=== PATIENT | male | born 1965 | race Caucasian/White ===

== ENCOUNTER 2019-04-21 10:22 | Day surgery (SDC) | payer OTHER ==
[2019-04-12 19:37] VITALS: BMI 25.5
[2019-04-21] MEDS ORDERED: ROPIVACAINE HCL 0.5% 30ML VIAL ONE (11:03)
[2019-04-21] MEDS ORDERED: MIDAZOLAM HCL 2 MG/2 ML SINGLE DOSE VIAL ONE ×4 (11:03→13:12)
[2019-04-21] MEDS ORDERED: oxyCODONE HCL 5 MG TABLET PO PRN (11:56)
[2019-04-21] MEDS ORDERED: ONDANSETRON 4 MG/2 ML VIAL IVPUSH PRN (11:56)
[2019-04-21] MEDS ORDERED: LACTATED RINGERS SOLUTION 1,000 ML IV SCH (12:00)
[2019-04-21] MEDS ORDERED: DEXAMETHASONE SOD PHOSPHATE 4 MG/1 ML VIAL ONE (12:17)
[2019-04-21] MEDS ORDERED: ceFAZolin SODIUM 1 GM VIAL ONE (12:17)
[2019-04-21] MEDS ORDERED: PROPOFOL 20 ML ONE ×2 (13:26→13:29)
[2019-04-21] MEDS ORDERED: KETOROLAC TROMETHAMINE 30 MG/1 ML VIAL ONE (14:00)
[2019-04-21 14:17] VITALS: TEMP 97.4
[2019-04-21] MEDS ORDERED: oxyCODONE HCL 5 MG TABLET ONE (14:48)
[2019-04-21] MEDS ORDERED: oxyCODONE HCL 5 MG TABLET PO ONE (14:50)
[2019-04-21 15:48] VITALS: BP 116/66; PULSE 62
--- NOTE | 2019-04-22 09:34 | OP ---
DATE OF OPERATION: 04/21/2019 PREOPERATIVE DIAGNOSES: 1. Right shoulder acromioclavicular joint osteoarthritis. 2. Right shoulder proximal biceps tendinosis and partial tear. 3. Right shoulder osteoarthritis 4. Right shoulder subacromial impingement syndrome with rotator cuff tendinosis. POSTOPERATIVE DIAGNOSES: 1. Right shoulder acromioclavicular joint osteoarthritis. 2. Right shoulder proximal biceps tendinosis and partial tear. 3. Right shoulder osteoarthritis 4. Right shoulder subacromial impingement syndrome with rotator cuff tendinosis. OPERATIVE PROCEDURE: 1. Right shoulder operative arthroscopy with distal clavicle resection. 2. Right shoulder proximal biceps tenotomy. 3. Right shoulder arthroscopic subacromial decompression with anterior-inferior acromioplasty. 4. Right shoulder extensive debridement of glenohumeral joint and rotator cuff. SURGEON: Alex Schreiber MD BACK SEWER: KARTHIK Brandon ANESTHESIA: Regional. COMPLICATIONS: None. ESTIMATED BLOOD LOSS: Minimal. INDICATION FOR PROCEDURE: The patient is a 54-year-old male with the above findings indicated for operative treatment. He had failed conservative measures. Risks, benefits, alternatives were discussed with him at length and proper informed consent was obtained. PROCEDURE: After proper identification of patient and correct operative site patient brought to the operating room and placed into the beach-chair position where regional anesthesia had been provided. Sedation was also given and this was adequate for procedure. All points of contact were well padded and in-line cervical positioning was maintained throughout the procedure. Right upper extremity was prepped and draped in the usual sterile fashion. Arthroscopy was performed through posterior, lateral and anterior portals. Incisions were made sharply through the skin and with blunt dissection down to the joint capsule on each portal. Glenohumeral joint was first observed and there was found to be severe full-thickness chondral loss of nearly the entire posterior 2/3 of the humeral head as well as moderate chondromalacia of the entire glenoid. Diffuse labral fraying was noted including significant fraying of the biceps tendon at its insertion into the superior labrum. This continued into the length of the biceps exiting the shoulder into the transverse humeral ligament groove. Moderate synovitis was noted throughout the shoulder and a lot of fraying of the labrum and loose cartilage was noted. Extensive debridement was performed in this compartment of the synovitis, any loose strands of the chondromalacia and the labrum. A proximal biceps tenotomy was then performed by resecting the biceps at its root just above the labrum and allowing it to fall into the arm. There was mild fraying of the articular surface of the rotator cuff anteriorly and this was debrided, but there was no evidence of any significant tear. Arthroscope was then introduced into the subacromial space where a severe bursitis was noted and this was debrided with mechanical shaver and Arthro wand. A very large anterior-inferior subacromial spur was noted and anterior-inferior acromioplasty was performed. The acromioclavicular joint was found to be severely hypertrophic and the medial edge of the acromion was shaved down so we could see the joint and there was severe arthrosis here. Using an arthroscopic bur the distal 8 mm of the distal clavicle was completely resected while leaving the capsule intact. Shoulder was taken through a range of motion and there was no contact between the acromion and the clavicle at this point. The rotator cuff had diffuse tendinosis on the bursal surface for the supraspinatus and infraspinatus and this was debrided. No significant tears were noted, however. The shoulder was then irrigated. Full range of motion was achieved with no impingement arthroscopically noted. Wounds were repaired with nylon sutures and sterile dressings and a splint were placed. Patient was reversed from anesthesia and brought to recovery room in stable condition. Wallace Ruffin, the library technical assistant, was integral throughout the procedure. The procedure could not have been performed without a skilled operative library technical assistant. Radha [id number]
== END 2019-04-21 16:00 | disposition home or self-care (01) ==
LOC: FASU 10:22
PROVIDERS: ATTEND Orthopaedic Surgery Hand Surgery
PROC: 0RBJ4ZZ Excision of Right Shoulder Joint, Percutaneous Endoscopic Approach (ICD-10-PCS; 2019-04-21)
PROC: 0RNJ4ZZ Release Right Shoulder Joint, Percutaneous Endoscopic Approach (ICD-10-PCS; 2019-04-21)
PROC: 0PB94ZZ Excision of Right Clavicle, Percutaneous Endoscopic Approach (ICD-10-PCS; principal; 2019-04-21 12:32)
PROC: 0RNJ4ZZ Release Right Shoulder Joint, Percutaneous Endoscopic Approach (ICD-10-PCS; 2019-04-21 12:32)
DX: M75.51 Bursitis of right shoulder (principal); M19.011 Primary osteoarthritis, right shoulder; M75.21 Bicipital tendinitis, right shoulder; M75.41 Impingement syndrome of right shoulder; M66.821 Spontaneous rupture of other tendons, right upper arm
CPT/HCPCS: 94760

== ENCOUNTER 2019-09-03 16:55 | Emergency (ER) | payer OTHER ==
[2019-09-03 17:02] VITALS: BP 136/109; PULSE 94; BMI 25.9
[2019-09-03] MEDS ORDERED: ePHEDrine SULFATE 50 MG/1 ML AMPULE IVPUSH ONE ×3 (17:30→17:34)
[2019-09-03] MEDS ORDERED: ePHEDrine SULFATE 50 MG/1 ML AMPULE ONE (17:36)
[2019-09-03] MEDS ORDERED: CEFTRIAXONE 1 GM in DEXTROSE 5%-WATER - 50 ML IVPB ONE (18:17)
[2019-09-03] MEDS ORDERED: ACETAMINOPHEN 1000 MG/100 ML VIAL (NON FORMULARY) IVPB ONE (18:18)
[2019-09-03] MEDS ORDERED: ACETAMINOPHEN INJECTION 100 ML IVPB ONE (18:49)
[2019-09-03] MEDS ORDERED: CEFTRIAXONE 1 GM/50 ML BAG ONE (18:50)
== END 2019-09-03 19:18 | disposition home or self-care (01) ==
LOC: JER 16:55
PROC: 3E03329 Introduction of Other Anti-infective into Peripheral Vein, Percutaneous Approach (ICD-10-PCS; principal; 2019-09-03)
PROC: 3E033GC Introduction of Other Therapeutic Substance into Peripheral Vein, Percutaneous Approach (ICD-10-PCS; 2019-09-03)
DX: N48.30 Priapism, unspecified (principal)
CPT/HCPCS: 99284-25; J0131